=== PATIENT | male | born 1980 | race Caucasian/White ===

== ENCOUNTER 2016-08-01 09:12 | Emergency (ER) | payer OTHER ==
[~2016-08-01] VITALS: Wt 74.8 kg
[~2016-08-01 09:12] MED LIST: ACYCLOVIR800 MG PO; ALBUTEROL0.09 MG/Ac INH; AMOXICILLIN500 M2 PO; AMOXICILLIN500 MG PO; AMOXIL500 MG PO; CATAFLAM50 MG PO; CEPHALEXIN500 M1 PO; CIPRO500 MG PO; CLARITIN-D 12 H1 TAB PO; CLEOCIN150 MG PO; CLINDAMYCIN HC300 MG PO; CYCLOBENZAPRINE10 MG PO; CYCLOBENZAPRINE5 M3 PO; DICLOFENAC POTA50 MG PO; DIFLUCAN150 MG PO; FIORICET 325 MG1 TAB PO; FLEXERIL10 MG PO; FLEXERIL5 MG PO; Fioricet 325 MG1 TAB PO; HYDROCODONE BIT1 T11 PO; KEFLEX500 MG PO; LISINOPRIL2.5 MG PO; LOMOTIL 0.025 M1 TA1 PO; LOTRISONE 0.05%15 GM T; MEDROL DOSEPAK4 MG PO; MOBIC7.5 MG PO; MOTRIN800 MG PO; MYCOLOG OINTMEN15 GM T; Motrin,Rufen800 MG PO; NAPROSYN500 MG PO; NKHM; NKHM PO; NORCO 325 MG-51 TAB PO; NORFLEX100 MG PO; NYSTATIN CREAM15 GM T; ORPHENADRINE C100 M1 PO; PEN-VEE K500 MG PO; PEN-VK500 MG PO; PERIDEX 480 ML480 ML PO; PHENERGAN W/ DE30 ML PO; PHENERGAN25 MG RC; PREDNICOT10 MG PO; PREDNICOT20 MG PO; PREDNISONE10 MG PO; PREDNISONE20 M1 PO; PREDNISONE50 MG PO; PROAIR HFA0.09 MG/AC INH; TESSALON PERLE100 M1 PO; TOBREX OPHTH S2.5 ML OPH; TORADOL10 MG PO; TRAMADOL HCL50 MG PO; TRIMOX500 MG PO; ULTRAM50 MG PO; VOLTAREN50 M1 PO; ZOFRAN ODT4 MG SL; [UNRECOGNIZED DRUG - OTHER]
[2016-08-01] MEDS ORDERED: NAPROSYN500 MG PO (09:21)
[2016-08-01] MEDS ORDERED: 'PARAFON FORTE500 M1 PO (09:21)
== END 2016-08-01 09:25 | disposition home or self-care (01) ==
LOC: ED 09:12
DX: M43.6 Torticollis (principal); R03.0 Elevated blood-pressure reading, without diagnosis of hypertension; G89.29 Other chronic pain; M54.9 Dorsalgia, unspecified; G43.909 Migraine, unspecified, not intractable, without status migrainosus

== ENCOUNTER → 2017-06-02 | Outpatient (CLI) | payer OTHER ==
[~2017-06-02] MED LIST changes: +'PARAFON FORTE500 M1 PO
== END | disposition home or self-care (01) ==
LOC: RESCLI 03:15
DX: Z00.00 Encounter for general adult medical examination without abnormal findings (principal)

== ENCOUNTER → 2017-06-03 | Outpatient (CLI) | payer OTHER ==
[2017-06-03 08:55] LABS: BASO # 0.1 10*3/uL (0.0-0.1); BASO % 0.7 % (0.0-1.0); EOS # 0.2 10*3/uL (0.0-0.4); EOS % 2.4 % (1.0-4.0); HEMATOCRIT 48.7 % (42.0-52.0); HEMOGLOBIN 16.6 g/dl (14.0-18.0); LYMPH # 2.7 10*3/uL (1.3-4.4); LYMPH % 37.8 % (27.0-41.0); MEAN CELL VOLUME 88.4 fl (80.0-94.0); MEAN CORPUSCULAR HGB 30.1 pg (27.0-31.0); MEAN CORPUSCULAR HGB CONC 34.1 g/dl (33.0-37.0); MEAN PLATELET VOLUME 10.4 fl (9.6-12.3); MONO # 0.6 10*3/uL (0.1-1.0); MONO % 7.9 % (3.0-9.0); NEUT # 3.6 10*3/uL (2.3-7.9); NEUT % 50.8 % (47.0-73.0); PLATELET COUNT AUTOMATED 242 10*3/uL (130-400); RED BLOOD COUNT 5.51 10*6/uL (4.50-5.90); RED CELL DISTRI WIDTH 12.7 % (0-14.5); WHITE BLOOD COUNT 7.1 10*3/uL (4.8-10.8)
[2017-06-03 09:15] LABS: ALBUMIN 3.9 gm/dl (3.1-4.5); BUN 15 mg/dl (7-24); CHLORIDE 102 mmol/L (98-107); SGOT/AST 36 IU/L (3-35); SGPT/ALT 67 U/L (12-78); SODIUM 137 mmol/L (136-145)
[2017-06-03 09:26] LABS: ALKALINE PHOSPHATASE 83 U/L (45-117); CHOLESTEROL 215 mg/dL (<200); CREATININE 1.18 mg/dL (0.70-1.30); HDL CHOLESTEROL 54 mg/dl (40-60); LDL CHOLESTEROL 136 mg/dL (9-159); TOTAL PROTEIN 7.8 gm/dL (6.4-8.2); TRIGLYCERIDES 124 mg/dl (<150); VLDL CHOLESTEROL 25 mg/dL (6-40)
[2017-06-03 11:09] LABS: VITAMIN D, 25-HYDROXY 31.3 ng/mL (30-100)
== END | disposition home or self-care (01) ==
LOC: LAB 01:10
PROVIDERS: Family Medicine
DX: Z00.01 Encounter for general adult medical examination with abnormal findings (principal)

== ENCOUNTER → 2017-06-09 | Outpatient (CLI) | payer OTHER | END | disposition home or self-care (01) | LOC: RESCLI 03:54 | DX: Z00.01 Encounter for general adult medical examination with abnormal findings (principal); E78.5 Hyperlipidemia, unspecified ==

== ENCOUNTER 2017-10-07 13:43 | Emergency (ER) | payer OTHER ==
[~2017-10-07] VITALS: Ht 177.8 cm; Wt 79.4 kg
[2017-10-07] MEDS ORDERED: AMOXICILLIN500 M2 PO (16:11)
[2017-10-07] MEDS ORDERED: MEDROL DOSEPAK4 MG PO (16:11)
[2017-10-07] MEDS ORDERED: Motrin,Rufen800 MG PO (16:11)
== END 2017-10-07 16:17 | disposition home or self-care (01) ==
LOC: ED 13:43
DX: M79.671 Pain in right foot (principal); J01.90 Acute sinusitis, unspecified; F17.200 Nicotine dependence, unspecified, uncomplicated

== ENCOUNTER 2018-01-14 04:36 | Emergency (ER) | payer OTHER ==
[~2018-01-14] VITALS: Ht 175.2 cm; Wt 81.6 kg
[2018-01-14 05:21] LABS: BASO # 0.1 10*3/uL (0.0-0.1); BASO % 0.7 % (0.0-1.0); EOS # 0.6 10*3/uL (0.0-0.4); HEMATOCRIT 43.2 % (42.0-52.0); LYMPH % 35.4 % (27.0-41.0); MEAN CELL VOLUME 91.1 fl (80.0-94.0); MEAN CORPUSCULAR HGB 31.6 pg (27.0-31.0); MEAN CORPUSCULAR HGB CONC 34.7 g/dl (33.0-37.0); MEAN PLATELET VOLUME 10.3 fl (9.6-12.3); MONO # 0.6 10*3/uL (0.1-1.0); MONO % 7.5 % (3.0-9.0); NEUT # 4.2 10*3/uL (2.3-7.9); NEUT % 49.2 % (47.0-73.0); PLATELET COUNT AUTOMATED 247 10*3/uL (130-400); RED BLOOD COUNT 4.74 10*6/uL (4.50-5.90); RED CELL DISTRI WIDTH 12.2 % (0-14.5); WHITE BLOOD COUNT 8.6 10*3/uL (4.8-10.8)
[2018-01-14 05:28] LABS: BILIRUBIN NEGATIVE (NEGATIVE); BLOOD NEGATIVE (NEGATIVE); CLARITY CLEAR (CLEAR); COLOR YELLOW (YELLOW); GLUCOSE NEGATIVE (NEGATIVE); KETONE NEGATIVE (NEGATIVE); LEUKO ESTERASE NEGATIVE (NEGATIVE); NITRITE NEGATIVE (NEGATIVE); SPECIFIC GRAVITY 1.025 (1.005-1.030); UROBILINOGEN 0.2 E.U./dl (0.2-1.0)
[2018-01-14 05:37] LABS: ALBUMIN 3.7 gm/dl (3.1-4.5); ALKALINE PHOSPHATASE 71 U/L (45-117); BUN 11 mg/dl (7-24); CHLORIDE 107 mmol/L (98-107); CREATININE 1.25 mg/dL (0.70-1.30); LIPASE 147 U/L (73-393); POTASSIUM 3.8 mmol/L (3.5-5.1); SGOT/AST 26 IU/L (3-35); SGPT/ALT 33 U/L (12-78); SODIUM 142 mmol/L (136-145); TOTAL PROTEIN 7.3 gm/dL (6.4-8.2)
[2018-01-14 05:40] LABS: BACTERIA TRACE; RBC 0-2 rbc/hpf (0-2); WBC 0-2 wbc/hpf (0-5)
[2018-01-14] MEDS ORDERED: MIRALAX POWDER255 G1 PO (06:35)
== END 2018-01-14 06:49 | disposition home or self-care (01) ==
LOC: ED 04:36
PROVIDERS: Emergency Medicine Emergency Medical Services
DX: K59.00 Constipation, unspecified (principal); R10.33 Periumbilical pain; G43.909 Migraine, unspecified, not intractable, without status migrainosus

== ENCOUNTER 2018-01-27 18:21 | Emergency (ER) | payer OTHER ==
[~2018-01-27] VITALS: Ht 175.2 cm; Wt 81.6 kg
[~2018-01-27 18:21] MED LIST changes: +MIRALAX POWDER255 G1 PO
[2018-01-27 18:45] LABS: BASO # 0.1 10*3/uL (0.0-0.1); BASO % 0.8 % (0.0-1.0); EOS # 0.5 10*3/uL (0.0-0.4); EOS % 5.4 % (1.0-4.0); HEMATOCRIT 43.3 % (42.0-52.0); HEMOGLOBIN 15.2 g/dl (14.0-18.0); LYMPH # 3.1 10*3/uL (1.3-4.4); LYMPH % 32.1 % (27.0-41.0); MEAN CELL VOLUME 90.2 fl (80.0-94.0); MEAN CORPUSCULAR HGB 31.7 pg (27.0-31.0); MEAN CORPUSCULAR HGB CONC 35.1 g/dl (33.0-37.0); MONO # 0.9 10*3/uL (0.1-1.0); NEUT # 5.1 10*3/uL (2.3-7.9); NEUT % 52.6 % (47.0-73.0); PLATELET COUNT AUTOMATED 242 10*3/uL (130-400); RED CELL DISTRI WIDTH 12.2 % (0-14.5); WHITE BLOOD COUNT 9.7 10*3/uL (4.8-10.8)
[2018-01-27 19:08] LABS: ALKALINE PHOSPHATASE 84 U/L (45-117); BUN 16 mg/dl (7-24); CHLORIDE 105 mmol/L (98-107); CREATININE 1.53 mg/dL (0.70-1.30); POTASSIUM 3.6 mmol/L (3.5-5.1); SGOT/AST 29 IU/L (3-35); SGPT/ALT 46 U/L (12-78); SODIUM 140 mmol/L (136-145); TOTAL PROTEIN 7.7 gm/dL (6.4-8.2)
== END 2018-01-28 11:21 | disposition home or self-care (01) ==
LOC: ED 18:21
PROVIDERS: Nurse Practitioner Family
DX: K42.9 Umbilical hernia without obstruction or gangrene (principal); Z79.1 Long term (current) use of non-steroidal anti-inflammatories (NSAID); Z79.899 Other long term (current) drug therapy; Z79.2 Long term (current) use of antibiotics

== ENCOUNTER 2018-06-08 07:09 | Emergency (ER) | payer OTHER ==
[~2018-06-08] VITALS: Ht 172.7 cm; Wt 74.8 kg
[2018-06-08 07:36] LABS: BASO # 0.1 10*3/uL (0.0-0.1); BASO % 0.8 % (0.0-1.0); EOS # 0.3 10*3/uL (0.0-0.4); EOS % 3.5 % (1.0-4.0); HEMATOCRIT 47.4 % (42.0-52.0); HEMOGLOBIN 16.3 g/dl (14.0-18.0); LYMPH # 2.3 10*3/uL (1.3-4.4); LYMPH % 29.6 % (27.0-41.0); MEAN CELL VOLUME 92.6 fl (80.0-94.0); MEAN CORPUSCULAR HGB 31.8 pg (27.0-31.0); MEAN CORPUSCULAR HGB CONC 34.4 g/dl (33.0-37.0); MEAN PLATELET VOLUME 10.3 fl (9.6-12.3); MONO # 0.6 10*3/uL (0.1-1.0); MONO % 7.9 % (3.0-9.0); NEUT # 4.4 10*3/uL (2.3-7.9); NEUT % 57.8 % (47.0-73.0); PLATELET COUNT AUTOMATED 272 10*3/uL (130-400); RED BLOOD COUNT 5.12 10*6/uL (4.50-5.90); RED CELL DISTRI WIDTH 12.1 % (0-14.5); WHITE BLOOD COUNT 7.7 10*3/uL (4.8-10.8)
[2018-06-08 07:49] LABS: BUN 16 mg/dl (7-24); CHLORIDE 106 mmol/L (98-107); CREATININE 1.31 mg/dL (0.70-1.30); POTASSIUM 4.2 mmol/L (3.5-5.1); SODIUM 142 mmol/L (136-145)
[2018-07-06] MEDS ORDERED: ROBAXIN500 M1 PO (14:56)
[2018-07-06] MEDS ORDERED: IBUPROFEN600 MG PO (14:56)
[2018-10-24] MEDS ORDERED: NAPROSYN500 MG PO (10:53)
[2018-10-24] MEDS ORDERED: KEFLEX500 M1 PO (10:53)
[2018-10-24] MEDS ORDERED: SEPTDS PO (10:53)
== END 2018-06-08 09:18 | disposition home or self-care (01) ==
LOC: ED 07:09
PROVIDERS: Emergency Medicine
DX: G43.909 Migraine, unspecified, not intractable, without status migrainosus (principal); R20.0 Anesthesia of skin; R20.2 Paresthesia of skin; I10 Essential (primary) hypertension; G89.29 Other chronic pain; Z79.2 Long term (current) use of antibiotics; Z79.899 Other long term (current) drug therapy

== ENCOUNTER 2018-11-03 21:26 | Emergency (ER) | payer SELFPAY ==
[~2018-11-03] VITALS: Ht 172.7 cm; Wt 74.8 kg
[~2018-11-03 21:26] MED LIST changes: +IBUPROFEN600 MG PO; +KEFLEX500 M1 PO; +ROBAXIN500 M1 PO; +SEPTDS PO
== END 2018-11-03 23:59 | disposition left against medical advice (07) ==
LOC: ED 21:26
DX: S63.124A Dislocation of interphalangeal joint of right thumb, initial encounter (principal); G43.909 Migraine, unspecified, not intractable, without status migrainosus; W18.39XA Other fall on same level, initial encounter; Y93.01 Activity, walking, marching and hiking; Y92.89 Other specified places as the place of occurrence of the external cause; Y99.8 Other external cause status

== ENCOUNTER 2019-03-08 14:10 | Emergency (ER) | payer SELFPAY ==
[~2019-03-08] VITALS: Ht 172.7 cm; Wt 74.8 kg
== END 2019-03-08 16:50 | disposition home or self-care (01) ==
LOC: ED 14:10
DX: G43.909 Migraine, unspecified, not intractable, without status migrainosus (principal); I10 Essential (primary) hypertension

== ENCOUNTER 2019-04-27 21:25 | Emergency (ER) | payer SELFPAY ==
[~2019-04-27] VITALS: Ht 172.7 cm; Wt 72.6 kg
[2019-04-27] MEDS ORDERED: PREDNISONE20 M1 PO (23:10)
[2019-04-27] MEDS ORDERED: PROAIR HFA8.5 GM INH (23:10)
[2019-04-27] MEDS ORDERED: TESSALON PERLE100 M1 PO (23:10)
== END 2019-04-27 23:29 | disposition home or self-care (01) ==
LOC: ED 21:25
DX: J06.9 Acute upper respiratory infection, unspecified (principal); I10 Essential (primary) hypertension; G43.909 Migraine, unspecified, not intractable, without status migrainosus

== ENCOUNTER 2019-09-19 23:09 | Emergency (ER) | payer SELFPAY ==
[~2019-09-19] VITALS: Ht 175.2 cm; Wt 74.8 kg
[~2019-09-19 23:09] MED LIST changes: +PROAIR HFA8.5 GM INH
[2019-09-19 23:54] LABS: BASO # 0.1 10*3/uL (0.0-0.1); BASO % 0.6 % (0.0-1.0); EOS # 0.2 10*3/uL (0.0-0.4); EOS % 1.7 % (1.0-4.0); HEMATOCRIT 42.8 % (42.0-52.0); LYMPH # 2.8 10*3/uL (1.3-4.4); LYMPH % 32.5 % (27.0-41.0); MEAN CELL VOLUME 88.6 fl (80.0-94.0); MEAN CORPUSCULAR HGB 30.4 pg (27.0-31.0); MEAN CORPUSCULAR HGB CONC 34.3 g/dl (33.0-37.0); MEAN PLATELET VOLUME 10.1 fl (9.6-12.3); MONO # 0.7 10*3/uL (0.1-1.0); MONO % 7.7 % (3.0-9.0); NEUT % 57.2 % (47.0-73.0); PLATELET COUNT AUTOMATED 245 10*3/uL (130-400); RED BLOOD COUNT 4.83 10*6/uL (4.50-5.90); RED CELL DISTRI WIDTH 12.8 % (0-14.5); WHITE BLOOD COUNT 8.7 10*3/uL (4.8-10.8)
[2019-09-20 00:09] LABS: ALBUMIN 3.8 gm/dl (3.1-4.5); ALKALINE PHOSPHATASE 74 U/L (45-117); BUN 16 mg/dl (7-24); CHLORIDE 108 mmol/L (98-107); CREATININE 1.25 mg/dL (0.70-1.30); LIPASE 100 U/L (73-393); POTASSIUM 3.7 mmol/L (3.5-5.1); SGOT/AST 25 IU/L (3-35); SGPT/ALT 40 U/L (12-78); SODIUM 140 mmol/L (136-145); TOTAL PROTEIN 7.2 gm/dL (6.4-8.2)
[2019-09-20 00:15] LABS: BILIRUBIN NEGATIVE (NEGATIVE); BLOOD TRACE-INTACT (NEGATIVE); CLARITY CLEAR (CLEAR); COLOR YELLOW (YELLOW); GLUCOSE NEGATIVE (NEGATIVE); KETONE NEGATIVE (NEGATIVE); LEUKO ESTERASE NEGATIVE (NEGATIVE); NITRITE NEGATIVE (NEGATIVE); PH 6.5 (5.0-9.0); UROBILINOGEN 0.2 E.U./dl (0.2-1.0)
[2019-09-20 00:29] LABS: WBC 0-2 wbc/hpf (0-5)
== END 2019-09-20 02:51 | disposition home or self-care (01) ==
LOC: ED 23:09
PROVIDERS: Emergency Medicine
DX: R10.9 Unspecified abdominal pain (principal); G43.909 Migraine, unspecified, not intractable, without status migrainosus; I10 Essential (primary) hypertension; F17.200 Nicotine dependence, unspecified, uncomplicated; Z79.899 Other long term (current) drug therapy

== ENCOUNTER 2019-09-28 17:12 | Emergency (ER) | payer SELFPAY ==
[~2019-09-28] VITALS: Ht 172.7 cm; Wt 79.4 kg
[2019-09-28 17:57] LABS: BASO # 0.1 10*3/uL (0.0-0.1); BASO % 0.7 % (0.0-1.0); EOS # 0.2 10*3/uL (0.0-0.4); EOS % 1.6 % (1.0-4.0); HEMATOCRIT 44.4 % (42.0-52.0); LYMPH % 41.3 % (27.0-41.0); MEAN CELL VOLUME 90.4 fl (80.0-94.0); MEAN CORPUSCULAR HGB 30.8 pg (27.0-31.0); MEAN PLATELET VOLUME 10.3 fl (9.6-12.3); MONO # 0.8 10*3/uL (0.1-1.0); MONO % 8.4 % (3.0-9.0); NEUT # 4.6 10*3/uL (2.3-7.9); NEUT % 47.6 % (47.0-73.0); PLATELET COUNT AUTOMATED 277 10*3/uL (130-400); RED BLOOD COUNT 4.91 10*6/uL (4.50-5.90); RED CELL DISTRI WIDTH 12.7 % (0-14.5); WHITE BLOOD COUNT 9.7 10*3/uL (4.8-10.8)
[2019-09-28 18:11] LABS: ACT PARTIAL THROMBO TIME 21.9 SECONDS (20.0-32.1); INTERNATIONAL NORM RATIO 0.9 (2.0-3.5)
[2019-09-28 18:12] LABS: ALBUMIN 3.9 gm/dl (3.1-4.5); ALKALINE PHOSPHATASE 79 U/L (45-117); BUN 16 mg/dl (7-24); CHLORIDE 113 mmol/L (98-107); CREATININE 1.31 mg/dL (0.70-1.30); LIPASE 103 U/L (73-393); POTASSIUM 3.9 mmol/L (3.5-5.1); SGOT/AST 23 IU/L (3-35); SGPT/ALT 34 U/L (12-78); SODIUM 142 mmol/L (136-145); TOTAL PROTEIN 7.6 gm/dL (6.4-8.2)
[2019-09-28 18:20] LABS: TROPONIN I < 0.015 ng/ml (<0.045)
[2019-09-28 19:39] LABS: BACTERIA 1+; BILIRUBIN NEGATIVE (NEGATIVE); BLOOD 3+ (NEGATIVE); CLARITY SL CLOUDY (CLEAR); COLOR YELLOW (YELLOW); GLUCOSE NEGATIVE (NEGATIVE); KETONE NEGATIVE (NEGATIVE); LEUKO ESTERASE NEGATIVE (NEGATIVE); NITRITE NEGATIVE (NEGATIVE); RBC TNTC rbc/hpf (0-2); SPECIFIC GRAVITY 1.015 (1.005-1.030); UROBILINOGEN 0.2 E.U./dl (0.2-1.0); WBC 0-2 wbc/hpf (0-5)
[2019-09-28] MEDS ORDERED: PERCOCET 5-3251 EACH PO (20:29)
== END 2019-09-28 20:53 | disposition home or self-care (01) ==
LOC: ED 17:12
PROVIDERS: Emergency Medicine
DX: N20.0 Calculus of kidney (principal); R11.2 Nausea with vomiting, unspecified

== ENCOUNTER 2020-06-16 00:54 | Emergency (ER) | payer SELFPAY ==
[~2020-06-16] VITALS: Ht 172.7 cm; Wt 76.2 kg
[~2020-06-16 00:54] MED LIST changes: +PERCOCET 5-3251 EACH PO
== END 2020-06-16 02:22 | disposition home or self-care (01) ==
LOC: ED 00:54
DX: S60.221A Contusion of right hand, initial encounter (principal); I10 Essential (primary) hypertension; G43.909 Migraine, unspecified, not intractable, without status migrainosus; Z98.890 Other specified postprocedural states; Z87.891 Personal history of nicotine dependence; X58.XXXA Exposure to other specified factors, initial encounter; Y93.89 Activity, other specified; Y92.89 Other specified places as the place of occurrence of the external cause; Y99.8 Other external cause status

== ENCOUNTER 2020-11-29 16:07 | Emergency (ER) | payer SELFPAY ==
[~2020-11-29] VITALS: Ht 175.2 cm; Wt 74.8 kg
[2020-11-29] MEDS ORDERED: CYCLOBENZAPRINE5 M3 PO (17:43)
[2020-11-29] MEDS ORDERED: Motrin,Rufen800 MG PO (17:43)
== END 2020-11-29 17:53 | disposition home or self-care (01) ==
LOC: ED 16:07
DX: M54.16 Radiculopathy, lumbar region (principal)

== ENCOUNTER 2021-02-10 14:36 | Emergency (ER) | payer SELFPAY ==
[2021-02-10 15:06] LABS: BASO # 0.1 10*3/uL (0.0-0.1); BASO % 0.6 % (0.0-1.0); EOS # 0.2 10*3/uL (0.0-0.4); EOS % 2.1 % (1.0-4.0); HEMATOCRIT 49.1 % (42.0-52.0); MEAN CELL VOLUME 88.6 fl (80.0-94.0); MEAN CORPUSCULAR HGB 30.3 pg (27.0-31.0); MEAN CORPUSCULAR HGB CONC 34.2 g/dl (33.0-37.0); MONO # 0.5 10*3/uL (0.1-1.0); NEUT # 5.8 10*3/uL (2.3-7.9); NEUT % 68.1 % (47.0-73.0); PLATELET COUNT AUTOMATED 269 10*3/uL (130-400); RED BLOOD COUNT 5.54 10*6/uL (4.50-5.90); RED CELL DISTRI WIDTH 11.9 % (0-14.5); WHITE BLOOD COUNT 8.5 10*3/uL (4.8-10.8)
[2021-02-10 15:24] LABS: ALBUMIN 3.5 gm/dl (3.1-4.5); ALKALINE PHOSPHATASE 76 U/L (45-117); BUN 13 mg/dl (7-24); CHLORIDE 106 mmol/L (98-107); CREATININE 1.07 mg/dL (0.70-1.30); POTASSIUM 3.8 mmol/L (3.5-5.1); SGOT/AST 18 IU/L (3-35); SGPT/ALT 32 U/L (12-78); SODIUM 138 mmol/L (136-145)
[2021-02-10] MEDS ORDERED: LISINOPRIL20 MG PO (16:15)
== END 2021-02-10 16:23 | disposition home or self-care (01) ==
LOC: ED 14:36
PROVIDERS: Nurse Practitioner Family
DX: I10 Essential (primary) hypertension (principal); R42 Dizziness and giddiness; Z79.899 Other long term (current) drug therapy

== ENCOUNTER 2021-05-23 05:46 | Emergency (ER) | payer SELFPAY ==
[~2021-05-23] VITALS: Ht 175.2 cm; Wt 74.8 kg
[~2021-05-23 05:46] MED LIST changes: +LISINOPRIL20 MG PO
[2021-05-23] MEDS ORDERED: PREDNISONE50 MG PO (08:34)
== END 2021-05-23 08:47 | disposition home or self-care (01) ==
LOC: ED 05:46
DX: T78.3XXA Angioneurotic edema, initial encounter (principal); G43.909 Migraine, unspecified, not intractable, without status migrainosus; Y92.89 Other specified places as the place of occurrence of the external cause

== ENCOUNTER 2021-05-28 10:59 | Emergency (ER) | payer SELFPAY ==
[~2021-05-28] VITALS: Ht 175.2 cm; Wt 74.8 kg
[2021-05-28 12:03] LABS: BASO % 0.3 % (0.0-1.0); EOS # 0.1 10*3/uL (0.0-0.4); EOS % 0.5 % (1.0-4.0); HEMATOCRIT 47.2 % (42.0-52.0); LYMPH # 3.7 10*3/uL (1.3-4.4); LYMPH % 23.6 % (27.0-41.0); MEAN CELL VOLUME 88.1 fl (80.0-94.0); MEAN CORPUSCULAR HGB 29.7 pg (27.0-31.0); MEAN CORPUSCULAR HGB CONC 33.7 g/dl (33.0-37.0); MEAN PLATELET VOLUME 9.8 fl (9.6-12.3); MONO # 1.2 10*3/uL (0.1-1.0); MONO % 7.8 % (3.0-9.0); NEUT # 10.6 10*3/uL (2.3-7.9); NEUT % 67.4 % (47.0-73.0); PLATELET COUNT AUTOMATED 353 10*3/uL (130-400); RED BLOOD COUNT 5.36 10*6/uL (4.50-5.90); RED CELL DISTRI WIDTH 12.1 % (0-14.5); WHITE BLOOD COUNT 15.7 10*3/uL (4.8-10.8)
[2021-05-28 12:19] LABS: ALBUMIN 3.2 gm/dl (3.1-4.5); ALKALINE PHOSPHATASE 80 U/L (45-117); BUN 18 mg/dl (7-24); CHLORIDE 105 mmol/L (98-107); CREATININE 1.06 mg/dL (0.70-1.30); POTASSIUM 3.4 mmol/L (3.5-5.1); SGOT/AST 12 IU/L (3-35); SGPT/ALT 24 U/L (12-78); SODIUM 140 mmol/L (136-145)
[2021-05-28] MEDS ORDERED: NAPROXEN250 MG PO (15:38)
[2021-05-28] MEDS ORDERED: TYLENOL325 M1 PO (15:38)
[2021-05-28] MEDS ORDERED: Peridex 473 ML473 ML PO (15:38)
[2021-05-28] MEDS ORDERED: AUGMENTIN 875875 MG PO (15:38)
== END 2021-05-28 15:43 | disposition home or self-care (01) ==
LOC: ED 10:59
PROVIDERS: Emergency Medicine
DX: K04.7 Periapical abscess without sinus (principal); G43.909 Migraine, unspecified, not intractable, without status migrainosus

== ENCOUNTER → 2022-09-08 | Outpatient (CLI) | payer OTHER ==
[~2022-09-08] MED LIST changes: +AUGMENTIN 875875 MG PO; +NAPROXEN250 MG PO; +Peridex 473 ML473 ML PO; +TYLENOL325 M1 PO
== END | disposition home or self-care (01) ==
LOC: RAD 11:32
PROVIDERS: ATTEND Nurse Practitioner Family
DX: M17.11 Unilateral primary osteoarthritis, right knee (principal); M25.461 Effusion, right knee

== ENCOUNTER → 2022-10-16 | Outpatient (CLI) | payer OTHER | END | disposition home or self-care (01) | LOC: MRI 14:00 | PROVIDERS: ATTEND Orthopaedic Surgery | DX: M17.11 Unilateral primary osteoarthritis, right knee (principal); D48.0 Neoplasm of uncertain behavior of bone and articular cartilage; M23.91 Unspecified internal derangement of right knee ==

== ENCOUNTER 2022-12-23 21:13 | Emergency (ER) | payer OTHER | END 2022-12-23 23:00 | disposition left against medical advice (07) | LOC: ED 21:13 | DX: R10.9 Unspecified abdominal pain (principal); Z53.21 Procedure and treatment not carried out due to patient leaving prior to being seen by health care provider ==

== ENCOUNTER 2023-02-13 18:25 | Emergency (ER) | payer OTHER ==
[~2023-02-13] VITALS: Ht 175.2 cm; Wt 74.8 kg
[2023-02-13 19:57] LABS: BASO % 0.3 % (0.0-1.0); EOS % 0.5 % (1.0-4.0); HEMATOCRIT 45.2 % (42.0-52.0); LYMPH # 1.7 10*3/uL (1.3-4.4); LYMPH % 25.8 % (27.0-41.0); MEAN CELL VOLUME 87.4 fl (80.0-94.0); MEAN CORPUSCULAR HGB 30.6 pg (27.0-31.0); MEAN PLATELET VOLUME 10.8 fl (9.6-12.3); MONO # 0.9 10*3/uL (0.1-1.0); MONO % 13.5 % (3.0-9.0); NEUT # 3.8 10*3/uL (2.3-7.9); NEUT % 59.6 % (47.0-73.0); PLATELET COUNT AUTOMATED 193 10*3/uL (130-400); RED BLOOD COUNT 5.17 10*6/uL (4.50-5.90); RED CELL DISTRI WIDTH 12.3 % (0-14.5); WHITE BLOOD COUNT 6.4 10*3/uL (4.8-10.8)
[2023-02-13 20:29] LABS: ALKALINE PHOSPHATASE 66 U/L (46-116); BUN 14 mg/dl (9-23); CHLORIDE 105 mmol/L (98-107); POTASSIUM 4.3 mmol/L (3.4-5.1); SGPT/ALT 65 U/L (5-49); TOTAL PROTEIN 7.1 gm/dL (6.0-8.0)
[2023-02-13] MEDS ORDERED: PENICILLIN VK500 MG PO (20:48)
== END 2023-02-13 21:10 | disposition home or self-care (01) ==
LOC: ED 18:25
PROVIDERS: Nurse Practitioner Family
DX: I10 Essential (primary) hypertension (principal); J02.9 Acute pharyngitis, unspecified; G43.909 Migraine, unspecified, not intractable, without status migrainosus; Z87.442 Personal history of urinary calculi; Z79.2 Long term (current) use of antibiotics; Z79.899 Other long term (current) drug therapy

== ENCOUNTER 2023-02-24 18:57 | Emergency (ER) | payer OTHER ==
[~2023-02-24] VITALS: Wt 83.9 kg
[~2023-02-24 18:57] MED LIST changes: +PENICILLIN VK500 MG PO
[2023-02-24 19:57] LABS: BASO % 0.4 % (0.0-1.0); EOS # 0.2 10*3/uL (0.0-0.4); EOS % 1.7 % (1.0-4.0); HEMATOCRIT 44.7 % (42.0-52.0); LYMPH # 3.8 10*3/uL (1.3-4.4); LYMPH % 37.2 % (27.0-41.0); MEAN CELL VOLUME 88.7 fl (80.0-94.0); MEAN CORPUSCULAR HGB CONC 34.9 g/dl (33.0-37.0); MONO # 1.1 10*3/uL (0.1-1.0); MONO % 11.3 % (3.0-9.0); NEUT % 49.1 % (47.0-73.0); PLATELET COUNT AUTOMATED 363 10*3/uL (130-400); RED BLOOD COUNT 5.04 10*6/uL (4.50-5.90); RED CELL DISTRI WIDTH 12.5 % (0-14.5); WHITE BLOOD COUNT 10.1 10*3/uL (4.8-10.8)
[2023-02-24 20:19] LABS: ALKALINE PHOSPHATASE 73 U/L (46-116); BUN 15 mg/dl (9-23); CHLORIDE 108 mmol/L (98-107); POTASSIUM 4.5 mmol/L (3.4-5.1); SGPT/ALT 39 U/L (5-49); TOTAL PROTEIN 7.4 gm/dL (6.0-8.0)
== END 2023-02-24 21:02 | disposition home or self-care (01) ==
LOC: ED 18:57
PROVIDERS: Physician Assistant Medical
DX: N20.9 Urinary calculus, unspecified (principal); R11.0 Nausea; I10 Essential (primary) hypertension; G43.909 Migraine, unspecified, not intractable, without status migrainosus; Z98.890 Other specified postprocedural states

== ENCOUNTER 2023-04-24 12:03 | Emergency (ER) | payer OTHER ==
[~2023-04-24] VITALS: Ht 175.2 cm; Wt 83.9 kg
[2023-04-24] MEDS ORDERED: LISINOPRIL20 MG PO (12:09)
[2023-04-24 14:23] LABS: BASO % 0.4 % (0.0-1.0); EOS # 0.1 10*3/uL (0.0-0.4); EOS % 0.9 % (1.0-4.0); HEMATOCRIT 45.6 % (42.0-52.0); LYMPH # 2.1 10*3/uL (1.3-4.4); LYMPH % 19.2 % (27.0-41.0); MEAN CELL VOLUME 87.4 fl (80.0-94.0); MEAN CORPUSCULAR HGB 29.7 pg (27.0-31.0); MEAN PLATELET VOLUME 10.3 fl (9.6-12.3); MONO # 0.8 10*3/uL (0.1-1.0); MONO % 7.1 % (3.0-9.0); NEUT # 7.8 10*3/uL (2.3-7.9); NEUT % 71.9 % (47.0-73.0); PLATELET COUNT AUTOMATED 265 10*3/uL (130-400); RED BLOOD COUNT 5.22 10*6/uL (4.50-5.90); RED CELL DISTRI WIDTH 12.9 % (0-14.5); WHITE BLOOD COUNT 10.8 10*3/uL (4.8-10.8)
[2023-04-24 14:43] LABS: ALKALINE PHOSPHATASE 66 U/L (46-116); BUN 11 mg/dl (9-23); CHLORIDE 106 mmol/L (98-107); POTASSIUM 4.5 mmol/L (3.4-5.1); SGPT/ALT 60 U/L (5-49); TOTAL PROTEIN 7.3 gm/dL (6.0-8.0)
[2023-04-24] MEDS ORDERED: CEPHALEXIN500 M1 PO (15:03)
[2023-04-24] MEDS ORDERED: SEPTDS PO (15:03)
== END 2023-04-24 15:11 | disposition home or self-care (01) ==
LOC: ED 12:03
PROVIDERS: Nurse Practitioner
DX: L03.116 Cellulitis of left lower limb (principal); I10 Essential (primary) hypertension; G43.909 Migraine, unspecified, not intractable, without status migrainosus; Z98.890 Other specified postprocedural states

== ENCOUNTER 2023-07-16 22:53 | Emergency (ER) | payer OTHER ==
[~2023-07-16] VITALS: Ht 175.2 cm; Wt 83.9 kg
[2023-07-16] MEDS ORDERED: Ketorolac Tromethamine 30 MG/ML VIAL IV ONE (23:10)
[2023-07-16] MEDS ORDERED: SODIUM CHLORIDE 0.9% 1,000 ML IV ONE (23:10)
[2023-07-16 23:28] LABS: BASO # 0.1 10*3/uL (0.0-0.1); BASO % 0.7 % (0.0-1.0); EOS # 0.1 10*3/uL (0.0-0.4); EOS % 1.7 % (1.0-4.0); HEMATOCRIT 43.8 % (42.0-52.0); LYMPH # 3.4 10*3/uL (1.3-4.4); MEAN CELL VOLUME 89.2 fl (80.0-94.0); MEAN CORPUSCULAR HGB 29.5 pg (27.0-31.0); MEAN CORPUSCULAR HGB CONC 33.1 g/dl (33.0-37.0); MEAN PLATELET VOLUME 9.9 fl (9.6-12.3); MONO # 0.7 10*3/uL (0.1-1.0); MONO % 9.6 % (3.0-9.0); NEUT # 3.4 10*3/uL (2.3-7.9); NEUT % 43.9 % (47.0-73.0); PLATELET COUNT AUTOMATED 241 10*3/uL (130-400); RED BLOOD COUNT 4.91 10*6/uL (4.50-5.90); RED CELL DISTRI WIDTH 12.7 % (0-14.5); WHITE BLOOD COUNT 7.6 10*3/uL (4.8-10.8)
[2023-07-16 23:48] LABS: ALKALINE PHOSPHATASE 67 U/L (46-116); BUN 15 mg/dl (9-23); CHLORIDE 104 mmol/L (98-107); LIPASE 39 U/L (12-53); SGPT/ALT 58 U/L (5-49)
[2023-07-17 00:49] LABS: BILIRUBIN Negative (Negative); BLOOD Negative (Negative); CLARITY Clear (Clear); COLOR Yellow (Yellow); GLUCOSE Negative (Negative); KETONE Negative (Negative); LEUKO ESTERASE Negative (Negative); NITRITE Negative (Negative); PH 6.5 (4.5-8.0)
[2023-07-17 00:56] LABS: BACTERIA TRACE; RBC 0-2 rbc/hpf (0-2)
[2023-07-17] MEDS ORDERED: MELOXICAM15 MG PO (01:24)
[2023-07-17] MEDS ORDERED: CYCLOBENZAPRINE5 M3 PO (01:24)
== END 2023-07-17 01:27 | disposition home or self-care (01) ==
LOC: ED 22:53
PROVIDERS: Internal Medicine
DX: M62.830 Muscle spasm of back (principal); M54.50 Low back pain, unspecified; Z87.442 Personal history of urinary calculi; Z79.2 Long term (current) use of antibiotics; Z79.899 Other long term (current) drug therapy

== ENCOUNTER 2024-09-15 18:36 | Emergency (ER) | payer OTHER ==
[~2024-09-15] VITALS: Ht 175.2 cm; Wt 81.6 kg
[~2024-09-15 18:36] MED LIST changes: +MELOXICAM15 MG PO
[2024-09-15] MEDS ORDERED: NAPROSYN500 MG PO (19:03)
[2024-09-15] MEDS ORDERED: PREDNISONE10 MG PO (19:03)
[2024-09-15] MEDS ORDERED: Ketorolac Tromethamine 30 MG/ML VIAL IM ONE (19:05)
== END 2024-09-15 19:28 | disposition home or self-care (01) ==
LOC: ED 18:36
DX: M10.072 Idiopathic gout, left ankle and foot (principal); I10 Essential (primary) hypertension; G43.909 Migraine, unspecified, not intractable, without status migrainosus; Z79.899 Other long term (current) drug therapy

== ENCOUNTER 2024-11-21 12:51 | Emergency (ER) | payer OTHER ==
[~2024-11-21] VITALS: Ht 175.2 cm; Wt 81.6 kg
[2024-11-21] MEDS ORDERED: Ondansetron Hydrochloride 4 MG/2 ML VIAL IV ONE (13:25)
[2024-11-21] MEDS ORDERED: SODIUM CHLORIDE 0.9% 1,000 ML IV ONE (13:25)
[2024-11-21 13:55] LABS: BASO # 0.1 10*3/uL (0.0-0.1); BASO % 0.9 % (0.0-1.0); EOS # 0.4 10*3/uL (0.0-0.4); EOS % 4.9 % (1.0-4.0); MEAN CELL VOLUME 89.5 fl (80.0-94.0); MEAN CORPUSCULAR HGB 31.0 pg (27.0-31.0); MEAN PLATELET VOLUME 9.9 fl (9.6-12.3); MONO # 0.6 10*3/uL (0.1-1.0); MONO % 7.2 % (3.0-9.0); NEUT # 4.5 10*3/uL (2.3-7.9); NEUT % 56.3 % (47.0-73.0); NUCLEATED RED BLOOD CELL 0.0 % (0.0-0.0); NUCLEATED RED BLOOD CELL 0.0 10*3/uL (0.0-0.0); PLATELET COUNT AUTOMATED 291 10*3/uL (130-400); RED CELL DISTRI WIDTH 11.9 % (0-14.5)
[2024-11-21 14:17] LABS: BUN 17 mg/dl (9-23); SGPT/ALT 14 U/L (5-49)
[2024-11-21 14:49] LABS: BILIRUBIN Negative (Negative); BLOOD Negative (Negative); CLARITY Clear (Clear); COLOR Yellow (Yellow); KETONE Negative (Negative); LEUKO ESTERASE Negative (Negative); NITRITE Negative (Negative); PH 6.5 (4.5-8.0); SPECIFIC GRAVITY 1.020 (1.001-1.030); UROBILINOGEN 1.0 E.U./dl (0.0-1.0)
[2024-11-21 15:10] LABS: BACTERIA TRACE; MUCOUS TRACE
[2024-11-21] MEDS ORDERED: CIPRO500 MG PO (15:43)
[2024-11-21] MEDS ORDERED: FLOMAX0.4 MG PO (15:43)
== END 2024-11-21 16:03 | disposition home or self-care (01) ==
LOC: ED 12:51
PROVIDERS: Internal Medicine
DX: N20.0 Calculus of kidney (principal); Z79.899 Other long term (current) drug therapy